=== PATIENT | female | born 1965 | race Caucasian/White ===

== ENCOUNTER 2025-06-14 14:12 | Emergency (ER) | payer OTHER ==
[~2025-06-14] VITALS: Ht 162.6 cm; Wt 68.5 kg
[2025-06-14 14:18] VITALS: TEMP 98.2
--- NOTE | 2025-06-14 15:01 | ED.PDOC ---
Back pain HPI HPI Comments Chitra Do is a 60-year-old female with past medical history of L5- L4 fusion surgery (2021) and CAD (2 stents on 2005) The patient came to the ED brought by EMS with chief complaint of 1 week of back pain, 7/10, continue, throbbing-like pain, that irradiates to the posterior tight and leg; associated with difficult to walk. Today, the pain worsen to 10/10, this prompted her visit to the ED. The patient denies fever, chills, chest pain, trauma, fall, numbness or tingling sensation or other symptoms. In the ED: BP: 152/72mmHg, HR: 92bpm. The patient will be further assessed. Chief Complaint: Back Pain Time Seen by MD: 14:23 Reviewed Notes: Nurses Notes, Jewelry Racker Notes, Medications, Allergies Allergies: Coded Allergies: Cyclobenzaprine (Verified Allergy, Unknown, 06/14/25) Information Source: Patient Mode of Arrival: EMS Timing: Weeks Duration: Since onset Location of Back pain: (R) Lumbar Radiates to: Posterior: (R) Foot, (R) Thigh Severity: Mild Quality: Aching History of: Chronic Back Pain Past Medical History PAST MEDICAL HISTORY: CAD, High Lipids Past Medical History (Other): Chronic back pain due to L5 -L4 fusion Surgical History (Other): Spine surgery: L5-L4 fusion SEAM CHECKER History: Denies all SEAM CHECKER Hx Family History Family History: Reviewed,noncontributory to illness Social History Smoker: Non-Smoker Alcohol: Denies ETOH Use Drugs: Denies Drug Use Lives In: Home Constitutional: denies: chills, diaphoresis, fatigue, fever, malaise, sweats, weakness, others EENTM: denies: blurred vision, double vision, ear bleeding, ear discharge, ear drainage, ear pain, ear ringing, eye pain, eye redness, hearing loss, mouth pain, mouth swelling, nasal discharge, nose bleeding, nose congestion, nose pain, photophobia, tearing, throat pain, throat swelling, voice changes, others Respiratory: denies: cough, hemoptysis, orthopnea, SOB at rest, shortness of breath, SOB with excertion, stridor, wheezing, others Cardiovascular: denies: chest pain, dizzy spells, diaphoresis, Dyspnea on exertion, edema, irregular heart beat, left arm pain, lightheadedness, palpitations, PND, syncope, others Gastrointestinal: denies: abdomen distended, abdominal pain, blood streaked bowels, constipated, diarrhea, dysphagia, difficulty swallowing, hematemesis, melena, nausea, poor appetite, poor fluid intake, rectal bleeding, rectal pain, vomiting, others Genitourinary: denies: abnormal vagina bleeding, burning, dyspareunia, dysuria, flank pain, frequency, hematuria, incontinence, pain, , vagina discharge, urgency, others Neurological: denies: dizziness, fainting, headache, left sided numbness, left sided weakness, numbness, paresthesia, pre-existing deficit, right sided numbness, right sided weakness, seizure, speech problems, tingling, tremors, weakness, others Musculoskeletal: reports: back pain; denies: gout, joint pain, joint swelling, muscle pain, muscle stiffness, neck pain, others Integumetry: denies: bruises, change in color, change in hair/nails, dryness, laceration, lesions, lumps, rash, wounds, others Allergic/Immunocompromised: denies: Difficulty Healing, Frequent Infections, Hives, Itching, others Hematologic/Lymphatic: denies: anemia, blood clots, easy bleeding, easy bruising, swollen glands, others Endocrine: denies: excessive hunger, excessive sweating, excessive thirst, excessive urination, flushing, intolerance to cold, intolerance to heat, unexplained weight gain, unexplained weight loss, others Psychiatric: denies: anxiety, bipolar disorder, depression, hopeless, panic disorder, schizophrenia, sleepless, suicidal, others Physical Exam General Appearance: No Apparent Distress, Normal HEENT: Normal ENT Inspection, Pharynx Normal, TMs Normal Neck: Full Range of Motion, Non-Tender, Normal, Normal Inspection Respiratory: Chest Non-Tender, Lungs Clear, No Accessory Muscle Use, No Respiratory Distress, Normal Breath Sounds Cardiovascular: No Edema, No JVD, No Murmur, No Gallop, Normal Peripheral Pulses, Regular Rate/Rhythm Breast Exam: Deferred Gastrointestinal: No Organomegaly, Non Tender, No Pulsatile Mass, Normal Bowel Sounds, Soft Genitalia: Deferred Pelvic: Deferred Rectal: Deferred Extremities: No calf tenderness, Tender (rigth lumbar area is tender to deep palpation. ) Musculoskeletal : Apperance: Normal Neurologic: Alert, airplane cleaner II-XII nml as Tested, No Motor Deficits, Normal Affect, Normal Mood, No Sensory Deficits Cerebellar Function: Normal Reflexes: Normal Skin: Dry, Normal Color, Warm Lymphatic: No Adenopathy Was a procedure done? Was a procedure done?: No Back Pain Differential Dx Differential Diagnosis: Fracture Other Differential Diagnosis Lumbar polyradiculopathy. # Stress fracture, #Spinal stenosis X-Ray, Labs, Meds, VS Vital Signs Date Time Temp Pulse Resp B/P (MAP) Pulse Ox O2 Delivery O2 Flow Rate FiO2 06/14/25 14:18 98.2 92 14 152/72 98 98.2 X-Ray, Labs, Meds, VS Comment 16:30 The patient has been re-evaluated. The pain has improved to 3/10 VS; Stable Lumbar spine Xray: Pedicle screws and rods in place at L5-S1. Mild compression L2 without displacement. No prior studies for comparison. Time of 1ST Reevaluation: 16:30 Reevaluation 1ST: Improved Patient Education/Counseling: Diagnosis, Treatment, Prognosis, Need For Follow Up Family Education/Counseling: No Family Present SEPSIS Sepsis Screen Date sepsis recognized/suspect: Jun 14, 2025 Time Sepsis recognized/suspect: 1414 Recent Procedure: No On Antibiotic Therapy: No Respiratory Rate >20: No Heart Rate >90: No Temp<36 C (96.8 F) or >38.3 C: No SBP <90 or MAP <65 mmHG: No New Acute Mental Status Change: No Is the patient on CPAP, BIPAP,: No Physician Orders Lumbar Spine 3 View (06/14/25 15:15) Vital Signs Date Time Temp Pulse Resp B/P (MAP) Pulse Ox O2 Delivery O2 Flow Rate FiO2 06/14/25 14:18 98.2 92 14 152/72 98 98.2 Departure 1 Departure Time of Disposition: 17:51 Impression: Primary Impression: Lumbar radiculopathy Additional Impression: Musculoskeletal pain Disposition: 01 HOME / SELF CARE / HOMELESS Condition: Good Additional Instructions: Please read all instructions provided in this packet carefully. You MUST follow-up with your primary care/family doctor in 1 to 2 days. If you are unable to see your primary care/family doctor, please return to our emergency room for re-assessment and re-evaluation in 1 to 2 days. Return to the emergency room here in our facility or to the nearest ER [facility] if your symptoms change or worsen. CONSULTATIONS: you MUST Follow-up for consultation as soon as possible with: -your specialist Spine surgeon and pain management doctor in 1-2 days. You MUST call the consultants office yourself to make an appointment. You may need to arrange that through your insurance and/or your primary/family doctor. If you are unable to see the clinical documentation consultant in 1 to 2 days, you must return to our emergency room (or any other ER of your choice) for re-assessment and re- evaluation. Adequate fluid hydration. Motrin 400mg po prn for pain (Over the counter) Although you have been discharged from the Emergency Department, this does not mean that you have a "clean bill of health". No definitive diagnosis for your symptoms has been made today. It is possible that you are in the process of developing a serious illness. This is why you must return to the ED without fail if any new or worsening symptoms develop. PROCEDURE(s): LUMB2 - LUMBAR SPINE 3 VIEW REASON: Back pain ORDER NUMBER(s): [id number], ACCESSION NUMBER(s): [id number] CLINICAL INDICATION: Back pain TECHNIQUE: 3 radiographic views of the lumbar spine were obtained. Comparison: XR SPINE LUMBAR 2-3 VIEWS on DOS: 06/07/25 FINDINGS/IMPRESSION: Pedicle screws and rods in place at L5-S1. Mild compression L2 without displacement. No prior studies for comparison. Discharged With: Self Comments Goals of care discussed with the patient > 35 min. Discussed plan of care with Dr. Felix Code status: Full code PCP: does not recall name Plan discussed with: The patient, the patient agrees with the plan. Critical Care Note Critical Care Time?: No Stability Stability form required: No Heart Score Heart Score: Heart Score Response (Comments) Value History N/A 0 EKG N/A 0 Age N/A 0 Risk Factors N/A 0 Troponin N/A 0 Total 0 ADRIANA DANIEL RESIDENT Jun 14, 2025 15:01
[2025-06-14] MEDS: LIDOCAINE 5% TOPICAL PATCH TOP ONE (15:15)
--- NOTE | 2025-06-14 16:13 | DVH ---
CLINICAL INDICATION: Back pain TECHNIQUE: 3 radiographic views of the lumbar spine were obtained. Comparison: XR SPINE LUMBAR 2-3 VIEWS on DOS: 06/07/25 FINDINGS/IMPRESSION: Pedicle screws and rods in place at L5-S1. Mild compression L2 without displacement. No prior studies for comparison.
[2025-06-14] MEDS: KETOROLAC TROMETH 30 MG/ML 1ML VIAL IV ONE (19:48)
[2025-06-14 21:15] VITALS: BP 145/98; PULSE 86; RESP 18; O2SAT 99
== END 2025-06-14 22:40 | disposition home or self-care (01) ==
LOC: ER 14:12 → EDBD 14:12 → ER 22:40
DX: M54.16 Radiculopathy, lumbar region (principal); M79.18 Myalgia, other site; Z98.890 Other specified postprocedural states; Z88.8 Allergy status to other drugs, medicaments and biological substances
CPT/HCPCS: 72100; 96374; 96375; 99284; J1100; J1885